=== PATIENT | male | born 1970 | race Caucasian/White ===

== ENCOUNTER 2016-10-24 04:39 | Emergency (ER) | payer BC, MEDICAID ==
[2016-10-24] MEDS ORDERED: KETOROLAC TROMETHAMINE INJ/PF 30 MG/1 ML SDV IV ONE (06:32)
[2016-10-24] MEDS ORDERED: NORMAL SALINE 1000 ML 1,000 ML IV ONE (06:32)
[2016-10-24] MEDS ORDERED: MORPHINE SULFATE 10 MG/ML INJ IV ONE ×2 (06:34→07:58)
[2016-10-24] MEDS ORDERED: ONDANSETRON HCL INJ/PF 4 MG/2 ML SDV IV ONE ×2 (06:34→07:58)
[2016-10-24 06:37] LABS: ABSOLUTE BASOPHILS # (AUTO) 0.1 10^3/uL (0.0-0.2); ABSOLUTE EOSINOPHILS # (AUTO) 0.2 10^3/uL (0.0-0.6); ABSOLUTE LYMPHOCYTES (AUTO) 2.4 10^3/uL (0.5-4.7); ABSOLUTE MONOCYTES (AUTO) 0.8 10^3/uL (0.1-1.4); EOSINOPHILS % (AUTO) 3.8 % (0-6); HEMATOCRIT 41.6 % (37.9-51.0); HEMOGLOBIN 14.4 g/dL (13.5-17.0); HGB HCT DIFFERENCE 1.6; LYMPHOCYTES % (AUTO) 36.5 % (13-45); MEAN CORPUSCULAR HEMOGLOBIN 32.6 pg (27.0-33.4); MEAN CORPUSCULAR HGB CONC 34.7 g/dL (32.0-36.0); MEAN CORPUSCULAR VOLUME 94 fl (80-97); MONOCYTES % (AUTO) 12.1 % (3-13); RED BLOOD COUNT 4.43 10^6/uL (4.35-5.55); RED CELL DISTRIBUTION WIDTH 12.9 % (11.5-14.0); SEGMENTED NEUTROPHILS % (AUTO) 46.6 % (42-78); WHITE BLOOD COUNT 6.5 10^3/uL (4.0-10.5)
--- NOTE | 2016-10-24 06:50 | ER Document Report ---
ED GI/ - General Mode of Arrival: Ambulatory Information source: Patient - HPI Patient complains to provider of: Abdominal pain - right side, Flank pain - right side. No: Testicular pain Onset: This morning Timing/Duration: Sudden Location: Right flank Associated symptoms: Other - see above <MICHAEL HONG - Last Filed: 10/24/16 07:03> <JEWELS CLARK - Last Filed: 10/24/16 08:00> - General Chief Complaint: Abdominal Pain Stated Complaint: RIGHT SIDE PAIN Time Seen by Provider: 10/24/16 06:24 Notes: Patient is a 46 year old male who presents to the ED with complaints of sudden onset right side abdominal pain thta radiates to his right flank with no radiation to his testicle that woke him up at approximately 0300 this morning and was unable to get comofortable. Patient denies a history of kidney stones but states he has a strong family history of kidney stones. Patient complains of nausea but dnies vomiting, diarrhea or fever. No other concerns or complaints at this time. (MICHAEL HONG) - Related Data Allergies/Adverse Reactions: fentanyl Allergy (Verified 10/24/16 04:51) Sulfa (Sulfonamide Antibiotics) Allergy (Verified 10/24/16 04:51) Past Medical History - General Information source: Patient - Social History Smoking Status: Unknown if Ever Smoked Chew tobacco use (# tins/day): No Drug Abuse: None Family History: Other - kidney stones - Past Medical History Cardiac Medical History: Reports: Hx Coronary Artery Disease, Hx Hypertension Renal/ Medical History: Denies: Hx Peritoneal Dialysis Psychiatric Medical History: Reports: Hx Anxiety, Hx Depression Past Surgical History: Reports: Hx Cardiac Catheterization, Hx Coronary Stent, Hx Orthopedic Surgery - right shoulder, right foot <MICHAEL HONG - Last Filed: 10/24/16 07:03> Review of Systems - Review of Systems Constitutional: No symptoms reported. denies: Fever EENT: No symptoms reported Cardiovascular: No symptoms reported Respiratory: No symptoms reported Gastrointestinal: See HPI, Abdominal pain, Nausea. denies: Diarrhea, Vomiting Genitourinary: See HPI, Flank pain Male Genitourinary: No symptoms reported Musculoskeletal: No symptoms reported Skin: No symptoms reported Hematologic/Lymphatic: No symptoms reported Neurological/Psychological: No symptoms reported <MICHAEL HONG - Last Filed: 10/24/16 07:03> Physical Exam - General General appearance: Appears well, Alert In distress: None - HEENT Head: Normocephalic, Atraumatic Eyes: Normal Extraocular movements intact: Yes Pupils: PERRL - Respiratory Respiratory status: No respiratory distress Breath sounds: Normal - Cardiovascular Rhythm: Regular Heart sounds: Normal auscultation Murmur: No - Abdominal Inspection: Normal Tenderness: Tender - right side and right flank - Back Back: CVA tenderness - right - Extremities General upper extremity: Normal inspection, Normal ROM. No: Edema General lower extremity: Normal inspection, Normal ROM. No: Edema - Neurological Neuro grossly intact: Yes Cognition: Normal Orientation: AAOx4 Cheryl Coma Scale Eye Opening: Spontaneous [place] Coma Scale Verbal: Oriented Cheryl Coma Scale Motor: Obeys Commands Cheryl Coma Scale Total: 15 Speech: Normal - Psychological Associated symptoms: Normal affect, Normal mood - Skin Skin Temperature: Warm Skin Moisture: Dry Skin Color: Normal <MICHAEL HONG - Last Filed: 10/24/16 07:03> Course - Laboratory Result Diagrams: 10/24/16 06:25 10/24/16 06:25 <MICHAEL HONG - Last Filed: 10/24/16 07:03> - Laboratory Result Diagrams: 10/24/16 06:25 10/24/16 06:25 <JEWLES CLARK - Last Filed: 10/24/16 08:00> - Vital Signs Vital signs: Temp Pulse Resp BP Pulse Ox 97.9 F 66 18 124/84 97 10/24/16 04:51 10/24/16 04:51 10/24/16 04:51 10/24/16 04:51 10/24/16 04:51 - Laboratory Laboratory results interpreted by me: 10/24/16 10/24/16 06:25 07:25 BUN 26 H AST 81 H ALT 152 H Urine Protein 30 H Urine Blood LARGE H Discharge <MICHAEL HONG - Last Filed: 10/24/16 07:03> <JEWELS CLARK - Last Filed: 10/24/16 08:00> - Discharge Clinical Impression: Right ureteral stone, Hydronephrosis with obstructing calculus Condition: Stable Disposition: HOME, SELF-CARE Additional Instructions: Kidney Stone You are passing a kidney stone. These stones are usually due to increased calcium or uric acid concentrations in your urine. Stones within the kidney itself are not painful. The pain occurs as the stone leaves the kidney to pass down the long tube, called the ureter, leading to the bladder. If the stone is small, it will usually pass by itself. Most patients can pass the stone at home. You will usually receive medications for pain, nausea or vomiting, and sometimes a medication to assist in passing the kidney stone. However, if the pain is very severe or if vomiting prevents you from taking oral pain medications, you may need to return for further treatment. Drink three or four quarts of fluids per day. You will be given pain medication (if needed) and urine strainers. Strain all your urine to see if the stone passes. If your doctor has asked you to bring the stone in for analysis, return with the stone once it has passed. Return if pain or vomiting become severe, if you develop a high fever, if you are unable to pass your urine, or if other unusual symptoms occur. Drink plenty of fluids. Take the pain medications as needed. Follow-up with a local urologist this week. RETURN TO THE EMERGENCY ROOM IF ANY NEW OR WORSENING SYMPTOMS. Prescriptions: Oxycodone HCl/Acetaminophen [Percocet 5-325 mg Tablet] 1 - 2 tab PO ASDIR PRN # 25 tablet PRN Reason: Promethazine HCl [Phenergan 25 mg Tablet] 25 mg PO Q4 PRN #15 tablet PRN Reason: For Nausea/Vomiting Referrals: [facility] [Provider Group] - Follow up in 3-5 days [facility] [Provider Group] - Follow up in 3-5 days Scribe Attestation: 10/24/16 08:00 I personally performed the services described in the documentation, reviewed and edited the documentation which was dictated to the scribe in my presence, and it accurately records my words and actions. (JEWELS CLARK) Scribe Documentation - Scribe Written by Adalid:: adalid Mckeon, 10/24/2016, 0649 acting as scribe for :: Samy <MICHAEL HONG - Last Filed: 10/24/16 07:03>
[2016-10-24 06:51] LABS: ALANINE AMINOTRANSFERASE 152 U/L (21-72); ALBUMIN 4.5 g/dL (3.5-5.0); ALKALINE PHOSPHATASE 75 U/L (38-126); ANION GAP 11 (5-19); ASPARTATE AMINO TRANSFERASE 81 U/L (17-59); BILIRUBIN,DIRECT 0.3 mg/dL (0.0-0.4); BILIRUBIN,TOTAL 0.5 mg/dL (0.2-1.3); BLOOD UREA NITROGEN 26 mg/dL (7-20); CALCIUM 9.5 mg/dL (8.4-10.2); CARBON DIOXIDE 26 mmol/L (22-30); CHLORIDE 105 mmol/L (98-107); CREATININE RESULT 0.79 mg/dL (0.52-1.25); GLUCOSE 108 mg/dL (75-110); POTASSIUM 4.4 mmol/L (3.6-5.0); SODIUM 141.7 mmol/L (137-145); TOTAL PROTEIN 8.1 g/dL (6.3-8.2)
--- NOTE | 2016-10-24 07:25 | RADIOLOGY REPORT (SQ) ---
EXAM DESCRIPTION: CT LTD RENAL STONE PROTOCOL ON COMPLETED DATE/TIME: 10/24/2016 7:17 am REASON FOR STUDY: right flank and abd pain COMPARISON: None. TECHNIQUE: CT scan of the abdomen and pelvis performed without intravenous or oral contrast. Images reviewed with lung, soft tissue, and bone windows. Reconstructed coronal and sagittal MPR images revi ewed. All images stored on PACS. All CT scanners at this facility use dose modulation, iterative reconstruction, and/or weight based d osing when appropriate to reduce radiation dose to as low as reasonably achievable (ALARA). [facility]: Dose Right [facility]: CareDose [facility]: Dose Right [facility]: Teradose 4D [facility]: Smart POSLavu RADIATION DOSE: Up-to-date CT equipment and radiation dose reduction techniques were employed. CTDIv ol: 15.9 mGy. DLP: 858 mGy-cm.mGy. LIMITATIONS: None. FINDINGS: LOWER CHEST: No significant findings. No nodules or infiltrates. NON-CONTRASTED LIVER, SPLEEN, ADRENALS: Evaluation limited by lack of IV contrast. No identified sign ificant masses. PANCREAS: No masses. No peripancreatic inflammatory changes. GALLBLADDER: No identified stones by CT criteria. No inflammatory changes to suggest cholecystitis. RIGHT KIDNEY AND URETER: No suspicious masses. Assessment limited by lack of IV contrast. 4.7 mm ca lculus in the proximal right ureter with mild obstructive changes. Very mild hydronephrosis. LEFT KIDNEY AND URETER: No suspicious masses. Assessment limited by lack of IV contrast. No signifi cant calcifications. No hydronephrosis or hydroureter. AORTA AND RETROPERITONEUM: No aneurysm. No retroperitoneal masses or adenopathy. BOWEL AND PERITONEAL CAVITY: No obvious masses or inflammatory changes. No free fluid. APPENDIX: Normal. PELVIS, BLADDER, AND ABDOMINAL WALL:No abnormal masses. No free fluid. Bladder normal. BONES: No significant findings. OTHER: No other significant finding. IMPRESSION: 4.7 mm calculus proximal right ureter with mild obstructive changes. TECHNICAL DOCUMENTATION: JOB ID: [id number] Quality ID # [id number]: Final reports with documentation of one or more dose reduction techniques (e.g., Au tomated exposure control, adjustment of the mA and/or kV according to patient size, use of iterative reconstruction technique) 2010 [employer]- All Rights Reserved
[2016-10-24 07:55] LABS: APPEARANCE,URINE SLIGHTLY-CLOUDY; BILIRUBIN,URINE NEGATIVE (NEGATIVE); GLUCOSE, URINE NEGATIVE (NEGATIVE); KETONES,URINE NEGATIVE (NEGATIVE); LEUKOCYTE ESTERASE,URINE NEGATIVE (NEGATIVE); NITRITE,URINE NEGATIVE (NEGATIVE); PROTEIN,URINE 30 mg/dL (NEGATIVE); URINE SPECIFIC GRAVITY 1.032; UROBILINOGEN,URINE NEGATIVE mg/dL (<2.0)
[2016-10-24] MEDS ORDERED: ONDANSETRON ODT 4 MG TAB (6 TAB/DSPK) PO PRN (08:00)
[2016-10-24] MEDS ORDERED: HYDROCODONE/ACETAMINOPHEN 5-325 MG 6 TAB/DSPK PO PRN (08:00)
[2016-10-24 08:42] VITALS: BP 127/92
== END 2016-10-24 08:42 | disposition home or self-care (01) ==
LOC: ER 04:39
DX: N13.2 Hydronephrosis with renal and ureteral calculous obstruction (principal); R10.9 Unspecified abdominal pain; N50.811 Right testicular pain; R11.0 Nausea
CPT/HCPCS: 99284; 36415; 83690; 85025; 80053; 81001; 76380; J1885; J2270; J2405; J7030

== ENCOUNTER 2016-10-28 22:44 | Emergency (ER) | payer BC ==
[2016-10-28] MEDS ORDERED: LIDOCAINE 2% URO-JET 5 ML KIT MM ONE (22:46)
[2016-10-29 00:11] LABS: ABSOLUTE BASOPHILS # (AUTO) 0.1 10^3/uL (0.0-0.2); ABSOLUTE EOSINOPHILS # (AUTO) 0.2 10^3/uL (0.0-0.6); ABSOLUTE LYMPHOCYTES (AUTO) 1.4 10^3/uL (0.5-4.7); ABSOLUTE MONOCYTES (AUTO) 0.5 10^3/uL (0.1-1.4); ABSOLUTE NEUT (AUTO) 6.4 10^3/uL (1.7-8.2); BASOPHILS % (AUTO) 0.8 % (0-2); EOSINOPHILS % (AUTO) 2.1 % (0-6); HEMOGLOBIN 14.4 g/dL (13.5-17.0); HGB HCT DIFFERENCE 1.2; LYMPHOCYTES % (AUTO) 15.8 % (13-45); MEAN CORPUSCULAR HGB CONC 34.3 g/dL (32.0-36.0); MEAN CORPUSCULAR VOLUME 93 fl (80-97); MONOCYTES % (AUTO) 6.3 % (3-13); RED BLOOD COUNT 4.51 10^6/uL (4.35-5.55); WHITE BLOOD COUNT 8.6 10^3/uL (4.0-10.5)
[2016-10-29 00:27] LABS: ALANINE AMINOTRANSFERASE 153 U/L (21-72); ALBUMIN 4.8 g/dL (3.5-5.0); ALKALINE PHOSPHATASE 86 U/L (38-126); ANION GAP 11 (5-19); ASPARTATE AMINO TRANSFERASE 70 U/L (17-59); BILIRUBIN,DIRECT 0.3 mg/dL (0.0-0.4); BILIRUBIN,TOTAL 0.8 mg/dL (0.2-1.3); BLOOD UREA NITROGEN 17 mg/dL (7-20); CALCIUM 9.6 mg/dL (8.4-10.2); CARBON DIOXIDE 30 mmol/L (22-30); CHLORIDE 103 mmol/L (98-107); CREATININE RESULT 1.03 mg/dL (0.52-1.25); GLUCOSE 131 mg/dL (75-110); LIPASE 115.7 U/L (23-300); POTASSIUM 4.4 mmol/L (3.6-5.0); SODIUM 144.1 mmol/L (137-145); TOTAL PROTEIN 8.6 g/dL (6.3-8.2)
[2016-10-29 00:42] LABS: APPEARANCE,URINE SLIGHTLY-CLOUDY; BILIRUBIN,URINE NEGATIVE (NEGATIVE); GLUCOSE, URINE NEGATIVE (NEGATIVE); KETONES,URINE NEGATIVE (NEGATIVE); LEUKOCYTE ESTERASE,URINE NEGATIVE (NEGATIVE); NITRITE,URINE NEGATIVE (NEGATIVE); PROTEIN,URINE 30 mg/dL (NEGATIVE); URINE SPECIFIC GRAVITY 1.015; UROBILINOGEN,URINE NEGATIVE mg/dL (<2.0)
[2016-10-29] MEDS ORDERED: MORPHINE SULFATE 10 MG/ML INJ IV PRN (01:09)
[2016-10-29] MEDS ORDERED: KETOROLAC TROMETHAMINE INJ/PF 30 MG/1 ML SDV IV ONE (01:09)
[2016-10-29] MEDS ORDERED: TAMSULOSIN HCL 0.4 MG CAP.SR.24H PO ONE (02:00)
[2016-10-29] MEDS ORDERED: HYDROCODONE/ACETAMINOPHEN 5-325 MG 6 TAB/DSPK PO PRN (02:02)
--- NOTE | 2016-10-29 02:03 | ER Document Report ---
ED General - General Chief Complaint: Possible Kidney Stone Stated Complaint: FLANK PAIN Time Seen by Provider: 10/29/16 00:52 Notes: Patient is a 46-year-old male who was seen in the emergency department 4 days ago for a right-sided kidney stone who presents with acute worsening of his right flank pain radiating to his right lower abdomen. Patient states that he had been doing well since discharge, had not required use of any of his pain medications until today approximately 3-4 hours prior to arrival. States he had an abrupt worsening of a constant, aching, throbbing pain to the right flank that radiated into his lower abdomen. Notes associated vomiting. He did try the [place] tablet that he was sent home without any improvement of the symptoms. Nothing worsen or trigger the episode. He has no prior history of kidney stones. He has not yet followed up with urology but does have an appointment scheduled for 08 November. TRAVEL OUTSIDE OF THE [place] IN LAST 30 DAYS: No - Related Data Allergies/Adverse Reactions: fentanyl Allergy (Verified 10/24/16 04:51) Sulfa (Sulfonamide Antibiotics) Allergy (Verified 10/24/16 04:51) Past Medical History - General Information source: Patient - Social History Smoking Status: Never Smoker Frequency of alcohol use: None Drug Abuse: None Lives with: Spouse/Significant other Family History: Reviewed & Not Pertinent, Other - kidney stones Patient has suicidal ideation: No Patient has homicidal ideation: No - Past Medical History Cardiac Medical History: Reports: Hx Coronary Artery Disease, Hx Heart Attack, Hx Hypertension Renal/ Medical History: Denies: Hx Peritoneal Dialysis Psychiatric Medical History: Reports: Hx Anxiety, Hx Depression Past Surgical History: Reports: Hx Cardiac Catheterization, Hx Coronary Stent, Hx Orthopedic Surgery - right shoulder, right foot Review of Systems - Review of Systems Notes: Constitutional: Negative for fever. HENT: Negative for sore throat. Eyes: Negative for visual changes. Cardiovascular: Negative for chest pain. Respiratory: Negative for shortness of breath. Gastrointestinal: Positive for abdominal pain and vomiting Genitourinary: Positive for hematuria Musculoskeletal: Negative for back pain. Skin: Negative for rash. Neurological: Negative for headaches, weakness or numbness. 10 point ROS negative except as marked above and in HPI. Physical Exam - Vital signs Vitals: Temp Pulse Resp BP Pulse Ox 97.7 F 62 20 119/94 H 100 10/28/16 22:50 10/28/16 22:50 10/28/16 22:50 10/28/16 22:50 10/28/16 22:50 Interpretation: Normal Notes: PHYSICAL EXAMINATION: GENERAL: Appears mildly uncomfortable but in no acute distress HEAD: Atraumatic, normocephalic. EYES: Pupils equal round and reactive to light, extraocular movements intact, sclera anicteric, conjunctiva are normal. ENT: nares patent, oropharynx clear without exudates. Moist mucous membranes. NECK: Normal range of motion, supple without lymphadenopathy LUNGS: Breath sounds clear to auscultation bilaterally and equal. No wheezes rales or rhonchi. HEART: Regular rate and rhythm without murmurs ABDOMEN: Soft, nontender, normoactive bowel sounds. No guarding, no rebound. No masses appreciated. Right CVA tenderness EXTREMITIES: Normal range of motion, no pitting or edema. No cyanosis. NEUROLOGICAL: No focal neurological deficits. Moves all extremities spontaneously and on command. PSYCH: Normal mood, normal affect. SKIN: Warm, Dry, normal turgor, no rashes or lesions noted. Course - Re-evaluation Re-evalutation: 10/29/16 02:01 Presents with findings consistent with acute nephrolithiasis. CT did confirm a 4 mm partially obstructing stone on the right when patient was seen 3 days ago. Urinalysis does show hematuria. Laboratory otherwise unremarkable. Pain was able to be controlled here in the emergency department. Patient is tolerating oral intake. Clinical history is not consistent with an acute abdominal aneurysm or dissection, [place], or pulmonary embolus. Urinalysis does not show findings consistent with an infected stone. Vitals have remained within normal limits. Patient will be discharged with recommendations to follow-up with urology, pain medications, and return precautions. They are in agreement with this plan and verbalized indications return to emergency department. - Vital Signs Vital signs: Temp Pulse Resp BP Pulse Ox 97.8 F 68 18 135/77 H 97 10/29/16 02:32 10/29/16 02:32 10/29/16 02:32 10/29/16 02:32 10/29/16 02:32 - Laboratory Result Diagrams: 10/28/16 23:55 10/28/16 23:55 Laboratory results interpreted by me: 10/28/16 10/29/16 23:55 00:19 Glucose 131 H AST 70 H ALT 153 H Total Protein 8.6 H Urine Protein 30 H Urine Blood LARGE H Discharge - Discharge Clinical Impression: Right ureteral stone Condition: Good Disposition: HOME, SELF-CARE Additional Instructions: Your symptoms should improve over the course of the next one week. If you continue to have pain for greater than one week or your pain is not controlled with the pain medications that you have been sent home with you need to return to the emergency department. Please also return if you develop fever, persistent vomiting, or any other symptoms that are concerning to you. You should take ibuprofen 600 mg every 6 hours and use the norco as prescribed only for pain not controlled by ibuprofen. Your also been sent home with a medication called Flomax to help pass the stone. You've been given Zofran to assist with nausea. Please followup closely with your primary care provider. Prescriptions: Tamsulosin HCl [Flomax 0.4 mg Cap.sr] 0.4 mg PO DAILY #7 cap.sr.24h Referrals: BALA BOSS MD [Primary Care Provider] - Follow up as needed
[2016-10-29 03:06] VITALS: BP 135/77
== END 2016-10-29 02:53 | disposition home or self-care (01) ==
LOC: ER 22:44
DX: N20.1 Calculus of ureter (principal); R10.31 Right lower quadrant pain
CPT/HCPCS: 99283; 51701; 96374; 96375; 36415; 83690; 85025; 80053; 81001; J1885; J2270; J3490